=== PATIENT | female | born 2000 | race Caucasian/White ===

== ENCOUNTER 2024-09-22 15:41 | Emergency (ER) | payer OTHER, SELFPAY ==
[2024-09-22 15:42] VITALS: BP 111/67; PULSE 105; RESP 16; TEMP 37; O2SAT 98; BMI 24.9
[2024-09-22 16:04] LABS: Absolute Lymphocyte Count 2.52 X10^3/uL (0.83-4.51); Absolute Neutrophil Count 9.1 X10^3/uL (2.0-7.7); Basophil# 0.04 X10^3/uL; Basophil% 0.3 % (0-1); Eosinophil# 0.02 X10^3/uL; Eosinophils% 0.1 % (0-5); Hematocrit 40.3 % (37-47); Hemoglobin 13.5 g/dL (12.0-15.0); Lymphocyte # 2.52 X10^3/ul (0.83-4.51); Lymphocyte % 17.5 % (19-41); Mean Corp Hgb Conc 33.5 g/dL (32-36); Mean Corpuscular Hgb 29.5 pg (27.0-32.0); Mean Platelet Vol. 9.4 fl (6.2-12.0); Monocyte# 2.66 X10^3/uL; Monocyte% 18.5 % (0-10); NRBC Flagged by Analyzer 0 % (0-5); Neutrophil % 63.2 % (47-70); POSITIVE DIFFERENTIAL YES; Platelet Count 221 K/mm3 (150-450); RBC Distribution Width CV 11.6 % (11.6-14.6); RBC Distribution Width SD 37.2 fl (35.1-43.9); Red Blood Count 4.58 M/mm3 (4.2-5.4); White Blood Count 14.4 K/mm3 (4.4-11.0)
[2024-09-22 16:11] LABS: Differential Indicated SCAN CRITERIA MET
[2024-09-22 16:35] LABS: ALB/GLOB Ratio 0.8 RATIO (0.9-2.4); AST(SGOT) 29 U/L (15-37); Alanine Aminotransfer ALT/SGPT 23 U/L (13-56); Albumin, Serum 3.3 g/dL (3.2-5.0); Alkaline Phosphatase 87 U/L (45-117); Anion Gap 8 (5-15); BUN 8 mg/dL (7-18); BUN/Creat Ratio 10.9 RATIO (10-20); Chloride 101 mmol/L (98-107); Creatinine, Serum 0.74 mg/dL (0.55-1.02); EST Glomerular Filtration Rate 102 mL/min (>60); Est Glom Filt Rate - Afr Amer 124 mL/min (>60); Estimated Creatinine Clearance 125.67 ml/min; Globulin 4.3 g/dL (2.2-4.2); Glucose 114 mg/dL (74-106); Internal QC Validated? YES +Cl - CLEAR BKGD; Potassium 4.1 mmol/L (3.5-5.1); Pregnancy, Serum, hCG Quali. NEGATIVE Negative; Protein, Total 7.6 g/dL (6.4-8.2); Sodium Level 131 mmol/L (136-145)
[2024-09-22 16:41] LABS: Differential Comment SCANNED
[2024-09-22 17:26] LABS: Mucous, Urine 0 SEEN /hpf (<or=2+)
--- NOTE | 2024-09-22 17:27 | EDS_ITS ---
HPI History of Present Illness Chief Complaint: General Illness [facility] Medical History (Updated 09/22/24 @ 19:12 by Moshe Ramos) Anxiety Medical History no medical history Home Medications ?Medication ?Instructions ?Recorded ?Last Taken ?Type duloxetine 60 mg capsule,delayed 60 mg PO DAILY 09/22/24 Unknown History release midodrine 10 mg tablet 10 mg PO TID 09/22/24 Unknown History norgestimate 0.25 mg-ethinyl 1 tab PO DAILY 09/22/24 Unknown History estradiol 35 mcg tablet (Sprintec (28)) ondansetron 4 mg disintegrating 4 mg PO Q8H PRN PRN Nausea #10 tabs 09/22/24 Unknown Rx tablet sulfamethoxazole 800 1 tab PO BID #20 tabs 09/22/24 Unknown Rx mg-trimethoprim 160 mg tablet (Bactrim DS) Allergy/AdvReac Type Severity Reaction Status Date / Time No Known Allergies Allergy Verified 09/22/24 15:43 Family History no significant family his Surgical History no surgical history Social History (Updated 09/22/24 @ 17:19 by Candace Lang) household members: family Smoking Status: Never smoker EXAM Physical Exam Const Vital Signs: 09/22/24 15:42 09/22/24 17:19 09/22/24 17:42 Temperature 98.6 F Temperature Source Oral Pulse Rate 105 H 101 H Respiratory Rate 16 20 H Respiratory Effort Normal Non-Labored Respiratory Pattern Normal Blood Pressure 111/67 128/70 H Blood Pressure Mean 81 89 Pulse Ox 98 99 Oxygen Delivery Method Room Air 09/22/24 19:00 Temperature Temperature Source Pulse Rate 88 Respiratory Rate 16 Respiratory Effort Respiratory Pattern Blood Pressure 129/79 H Blood Pressure Mean 95 Pulse Ox 99 Oxygen Delivery Method MDM MDM MDM Narrative Medical decision making narrative: HISTORY OF PRESENT ILLNESS: 24-year-old female presents with fever and headache. She states she has had a fever at home. She notes right lower quadrant abdominal pain. She notes she has been having headaches for approximately 2 years. States he has been intermittent. Worse the last several weeks. Denies chronic NSAID use. Notes she has had abdominal pain for last several months. Worse last 4 to 5 days. Notes right lower quadrant/right flank pain. Notes burning with urination. Notes nausea but no vomiting. Patient denies sudden onset or thunderclap headache, denies maximal intensity within 1 minute, vomiting, neck pain, stiffness, changes in vision, fever, history malignancy, syncope, or seizures associated with headache. REVIEW OF SYSTEMS: Pertinent positives: Headache, fever, abdominal pain, dysuria Pertinent negatives: Vomiting, focal weakness PHYSICAL EXAM: Nursing triage notes reviewed, Vital signs reviewed Constitutional: please see mdm HENT: MMM Eyes: Pupils equal round and reactive to light, Extraocular muscles intact Neck: No stridor, no JVD, full neck ROM Lungs: Clear to auscultation, No wheezing or rales. No increased work of breathing, no conversational dyspnea, no accessory muscle use, no nasal flaring. No respiratory distress noted Heart: Regular rate and rhythm, No murmurs, No rubs and No gallops, 2+ distal pulses (radial, femoral, posterior tibial) in all extremities Abdomen: Soft, there is no tenderness, rigidity, rebound or guarding, no obvious peritoneal signs, no palpable pulsatile abdominal masses, no auscultated abdominal bruit : No CVAT Extremities: No edema Neuro: Alert and oriented x3, neuro exam at baseline, cranial nerves II through XII are intact. No pain with extraocular muscle movement. There is negative test of skew. 5 of 5 strength in upper and lower extremities in flexion extension. Intact sensation to light touch in upper and lower extremity dermatomes. No truncal or extremity ataxia. No dysdiadochokinesia. Normal gait. 2+ reflexes in upper and lower extremities. No meningeal signs. Negative Babinski. NIH of 0. Skin: No rash or lesions noted MEDICAL DECISION MAKING: Chief Complaint: Headache, abdominal pain, fever External records reviewed: Reviewed prior imaging studies Factors affecting care: orthostatic hypotension Social determinants of health: none History obtained from others: none Consults: none [facility] Narrative: Patient was initially hemodynamically stable, afebrile and nontoxic-appearing. No focal neurologic deficits. Abdomen with suprapubic tenderness. No pain at McBurney's point. Negative José sign I considered the following differential diagnosis: ICH, subacute hemorrhage, meningitis, AAA, small bowel obstruction, abdominal perforation, appendicitis, pancreatitis, hepatobiliary pathology (acute cholecystitis), mesenteric ischemia, pathology (ie nephrolithiasis, pyelonephritis). ALL IMAGES (IF OBTAINED) HAVE BEEN PERSONALLY REVIEWED AND INTERPRETED BY MYSELF. CBC leukocytosis suggestive of systemic information, no anemia or thrombocytopenia CMP without significant electrolyte abnormalities, there is no sign of endorgan hypoperfusion or metabolic acidosis, no TARIQ serum test is negative Urinalysis showed evidence of UTI (will start empiric antibiotics if CT is negative for acute appendicitis) CT scan showed evidence of pyelonephritis. No discrete abscess. These initial orders were placed via triage per protocol. After evaluating the patient I added on a lipase and a CT scan abdomen pelvis as well as treatments including IV fluids, IV Reglan and IV Toradol Gave oral Bactrim. Sent urine for culture. Continue the patient on oral Bactrim for home-going. The patient and/or family, caregivers express understanding. The patient and/or family, caregivers agrees with the plan. Shared decision making: I will have a discussion with the patient and or visitors regarding risk/benefits of further testing or admission. They will be made aware of of the risk/benefits inherent in this decision they will be given the opportunity to voice understanding. Total critical care time today provided was at least 0 minutes. This excludes separately billable procedures. Critical care time (if documented) is secondary to the patient having high probability of clinically significant/life threatening deterioration in the patient's condition which required my urgent intervention. Impression: 1. Lower abdominal pain 2. Pyelonephritis 3. Leukocytosis Dispo: Discharge home This note was generated with [employer] dictation software. It may contain incorrect words, spelling, and punctuation that were not noted in review of the chart prior to signing. Lab Data Labs: Laboratory Results - last 24 hr 09/22/24 09/22/24 15:52 17:20 WBC 14.4 H RBC 4.58 Hgb 13.5 Hct 40.3 MCV 88.0 MCH 29.5 MCHC 33.5 RDW Std Deviation 37.2 RDW Coeff of Jade 11.6 Plt Count 221 MPV 9.4 Immature Gran % (Auto) 0.400 Neut % (Auto) 63.2 Lymph % (Auto) 17.5 L Davidson % (Auto) 18.5 H Eos % (Auto) 0.1 Baso % (Auto) 0.3 Absolute Neuts (auto) 9.1 H Absolute Lymphs (auto) 2.52 Nucleated RBC % 0 Differential Comment SCANNED Diff Path Review May foll Sodium 131 L Potassium 4.1 Chloride 101 Carbon Dioxide 22.0 Anion Gap 8 BUN 8 Creatinine 0.74 Estim Creat Clear Calc 125.67 Est GFR (MDRD) Af Amer 124 Est GFR (MDRD) Non-Af 102 BUN/Creatinine Ratio 10.9 Glucose 114 H Calcium 9.0 Total Bilirubin 0.50 AST 29 ALT 23 Alkaline Phosphatase 87 Total Protein 7.6 Albumin 3.3 Globulin 4.3 H Albumin/Globulin Ratio 0.8 L Lipase < 10 L Serum , Qual NEGATIVE Urine Color Yellow Urine Clarity Sl. Cloudy Urine pH 6.0 Ur Specific [place] 1.010 Urine Protein 30 H Urine Glucose (UA) Normal Urine Ketones Negative Urine Occult Blood 50 H Urine Nitrite Positive H Urine Bilirubin Negative Urine Urobilinogen Normal Ur Leukocyte Esterase 500 H Urine RBC 0-5 SEEN Urine WBC >100 SEEN Ur Squamous Epith Cells 0-5 SEEN Urine Bacteria 1+ Urine Mucus 0 SEEN Radiography Diagnostic Testing: Clinical Impression(s) from Imaging Studies Abdomen/Pelvis CT 09/22/24 18:01 IMPRESSION: 1. Right pyelonephritis. No perinephric fluid collection or discrete drainable abscess. 2. Moderate stool in the proximal half of the colon. Mildly prominent fluid in distal small bowel loops. Normal appendix. 3. Presumed dominant 3.6 cm right ovarian follicle. Not suspicious by size criteria. No obvious complex features. Electronically Signed: Janneth Patino MD at 19:58 EST Reading Location ID and State: [facility] / [place] Tel , Service support , ADDENDUM: 09/22/242016 IMPRESSION: 1. Right pyelonephritis. No perinephric fluid collection or discrete drainable abscess. 2. Moderate stool in the proximal half of the colon. Mildly prominent fluid in distal small bowel loops. Normal appendix. 3. Presumed dominant 3.6 cm right ovarian follicle. Not suspicious by size criteria. No obvious complex features. N.B. : The above Results were Read Back by Janneth Patino MD to Danny Blankenship MD, and understanding confirmed on 09/22/2024 20:10:57 (ET). Electronically Signed: Janneth Patino MD at 19:58 EST , Discharge Plan Triage Chief Complaint: General Illness ED Provider: Damir Tate Dx/Rx/DC Orders Prescriptions: New sulfamethoxazole-trimethoprim [Bactrim DS] 800-160 mg tablet 1 tab PO BID Qty: 20 0RF ondansetron 4 mg tablet,disintegrating 4 mg PO Q8H PRN PRN (Reason: Nausea) Qty: 10 0RF No Action norgestimate-ethinyl estradiol [Sprintec (28)] 0.25-35 mg-mcg tablet 1 tab PO DAILY midodrine 10 mg tablet 10 mg PO TID duloxetine 60 mg capsule,delayed release(DR/EC) 60 mg PO DAILY Primary Care Provider: GABRIELA TANG MD Referrals: GABRIELA TANG MD [Other] Activity Restrictions/Additional Instructions: Thank you for trusting us with your care today! Please take Tylenol (2 pills, 650 mg), ibuprofen (2 pills, 400 mg) every 6 hours as needed for pain and fever control. Please take antibiotics until course is complete. Please return to the emergency department if your symptoms change or worsen. Please follow with your primary care physician for further outpatient evaluation and management. Print Language: Indonesian Disposition Disposition: Home, Self Care
[2024-09-22 17:33] LABS: Color, Urine Yellow (Yellow); Glucose, Dipstick Normal (Normal); Ketone-Dipstick Negative (Negative); Leukocyte Esterase-Dipstick 500 /ul (Negative); Nitrite-Dipstick Positive (Negative); Occult Blood-Urine 50 /ul (Negative); Protein-Dipstick 30 mg/dl (Negative); Urine Bilirubin Dipstick Negative (Negative); Urine Clarity Sl. Cloudy (Clear); Urine Urobilinogen Normal (Normal)
[2024-09-22 17:42] VITALS: BP 128/70; PULSE 101; RESP 20; O2SAT 99
[2024-09-22 17:52] LABS: Bacteria 1+ /hpf (None Seen)
[2024-09-22 17:53] LABS: Red Blood Cells-Urine 0-5 SEEN /hpf (0-5); Squamous Epithelial Cells - UA 0-5 SEEN /hpf (5-10); White Blood Cells >100 SEEN /hpf (0-5)
--- NOTE | 2024-09-22 18:01 | CT_ITS ---
We are attempting to reach an attending provider to discuss findings. An addendum with communication details will be sent when the communication is complete. EXAM: CT ABDOMEN AND PELVIS WITH INTRAVENOUS CONTRAST CLINICAL INDICATION: RLQ abd TTP TECHNIQUE: Helically acquired images were obtained of the abdomen and pelvis with intravenous contrast. This CT exam was performed using one or more of the following dose reduction techniques: automated exposure control, adjustment of the mA and/or kV according to patient size, and/or use of iterative reconstruction technique. CONTRAST: IV 100mL Isovue-300 RADIATION DOSE: CTDIvol = 14.66 mGy, DLP = 953.16 mGy-cm COMPARISON: No relevant prior studies available. FINDINGS: LOWER THORAX: Unremarkable. Lung bases are clear. No cardiomegaly. No significant pericardial effusion. ABDOMEN: LIVER: Unremarkable. Homogeneous. No focal mass. GALLBLADDER AND BILE DUCTS: Unremarkable. No calcified gallstones. No gallbladder distention or wall edema. No intra- or extrahepatic biliary ductal dilation. PANCREAS: Unremarkable. No focal cystic or solid mass. SPLEEN: Unremarkable. Normal size without focal cystic or solid mass. ADRENALS: Unremarkable. No nodules. KIDNEYS AND URETERS: There is mild defined and patchy decreased enhancement of small sections of anterolateral upper pole and anterior mid right kidney, consistent with pyelonephritis. Normal renal size and position. No hydronephrosis. No perinephric fluid collection or discrete drainable abscess. STOMACH AND BOWEL: Moderate stool in much of the proximal half of the colon, moderate gas in the splenic flexure, collapsed rectosigmoid. Mildly prominent fluid-filled distal small bowel loops. No stomach or bowel distention. No focal inflammatory change. PELVIS: APPENDIX: Normal gas-filled appendix best seen on coronal images 65 through 68. BLADDER: Mildly thick-walled but minimally distended urinary bladder. REPRODUCTIVE: Likely dominant follicle in the right adnexa, 3.6 cm x 3.0 cm x 2.9 cm, surrounded by similar density fluid filled small bowel loops. Unremarkable uterus and left adnexa with the exception of mildly prominent left pelvic and enhanced gonadal veins. ABDOMEN and PELVIS: INTRAPERITONEAL SPACE: Unremarkable. No ascites or other fluid collection. No free air. BONES/JOINTS: Unremarkable. No suspicious lytic or blastic abnormality. SOFT TISSUES: Slight fat in the umbilicus. No discrete abdominal or pelvic wall hernia. VASCULATURE: Unremarkable. Abdominal aorta is non-dilated. LYMPH NODES: Unremarkable. No enlarged lymph nodes. CT/Abdomen/Pelvis W IV Cont ONLY IMPRESSION: 1. Right pyelonephritis. No perinephric fluid collection or discrete drainable abscess. 2. Moderate stool in the proximal half of the colon. Mildly prominent fluid in distal small bowel loops. Normal appendix. 3. Presumed dominant 3.6 cm right ovarian follicle. Not suspicious by size criteria. No obvious complex features. Electronically Signed: Janneth Patino MD at 19:58 EST ,
[2024-09-22] MEDS: 0.9% Normal Saline (1000mL) 1,000 ML 999 ML IV (18:38)
[2024-09-22] MEDS: Ketorolac 15 MG/ML Vial IV (18:38)
[2024-09-22] MEDS: Metoclopramide 10 MG/2 ML Vial 5 MG IV (18:38)
[2024-09-22 18:40] LABS: Lipase < 10 U/L (13-75)
[2024-09-22 19:00] VITALS: BP 129/79; PULSE 88; RESP 16; O2SAT 99
[2024-09-22] MEDS: Smz/Tmp Ds Tablet 1 TABLET PO (20:37)
[2024-09-23 14:15] LABS: Pathologist Review Reviewed
== END 2024-09-22 20:46 | disposition home or self-care (01) ==
PROVIDERS: Emergency Provider Emergency Medicine; Visit Provider Emergency Medicine
DX: N12 Tubulo-interstitial nephritis, not specified as acute or chronic (principal); D72.829 Elevated white blood cell count, unspecified; I95.1 Orthostatic hypotension; R51.9 Headache, unspecified; F41.9 Anxiety disorder, unspecified; Z79.899 Other long term (current) drug therapy
CPT/HCPCS: 74177; 80053; 81001; 83690; 84703; 85025; 87077; 87086; 87088; 87186; 96361; 96374; 96375; 99283; Q9967; A4216